=== PATIENT | female | born 1930 | race Caucasian/White ===

== ENCOUNTER 2017-11-02 11:06 | Observation (INO) | payer OTHER ==
[~2017-11-02] VITALS: Ht 170.2 cm; Wt 87.5 kg
[~2017-11-02 11:06] MED LIST: DALIRESP500 MCG PO; LEVOFLOXACIN250 MG PO; LIPITOR40 MG PO; LO-DOSE ASPIRIN81 M1 PO; LOSARTAN POTAS100 MG PO; LOSARTAN-HCTZ1 EAC1 PO; MECLIZINE HCL25 MG PO; PANTOPRAZOLE SO40 MG PO; SYMBICORT60 INHALAT IH; TYLENOL ARTHRI650 MG PO; ULTRAM50 MG PO; VITAMIN D31000 UNIT PO
[2017-11-02 12:34] LABS: HEMATOCRIT 39.3 % (36.0-46.0); HEMOGLOBIN 12.9 G/DL (11.9-15.5); MCH 28.5 PG (29.0-34.0); MCHC 32.8 G/DL (30.0-36.0); MCV 86.8 FL (83-99); PLATELET COUNT 213 K/uL (156-360); RBC DIS.WIDTH-CV 13.9 % (11.8-14.6); RBC DIS.WIDTH-SD 44.2 % (39-53); RED BLOOD COUNT 4.53 M/uL (3.80-5.20); WHITE BLOOD COUNT 6.1 K/uL (4.1-10.2)
[2017-11-02 12:45] LABS: CHLORIDE 102 mEq/L (99-109); POTASSIUM 3.5 mEq/L (3.7-5.4); SODIUM 137 mEq/L (136-147)
[2017-11-02 12:47] LABS: GLUCOSE 151 mg/dL (70-99); TOTAL PROTEIN 6.8 g/dL (6.4-8.3)
[2017-11-02 12:49] LABS: TOTAL BILIRUBIN 0.6 mg/dL (0.0-1.0)
[2017-11-02 12:50] LABS: ALKALINE PHOSPHATASE 96 IU/L (3-129)
[2017-11-02 12:51] LABS: CREATININE 1.1 mg/dL (0.6-1.3); GFR ESTIMATE (CALCULATED) 50 mL/min/
[2017-11-02 12:52] LABS: AST (GOT) 17 IU/L (2-34); UREA NITROGEN (BUN) 21 mg/dL (9-23)
[2017-11-02 12:53] LABS: ALT (GPT) 14 IU/L (3-49)
[2017-11-02 18:11] LABS: ERTH.SED.RATE 35 MM/HR (0-30)
[2017-11-02 18:13] LABS: APPEARANCE CLEAR ((CLEAR)); BILIRUBIN NEGATIVE; BLOOD NEGATIVE; COLOR YELLOW ((YELLOW)); GLUCOSE (STRIP) NEGATIVE; KETONES NEGATIVE; LEUKOCYTES TRACE; NITRITE NEGATIVE; PROTEIN (STRIP) NEGATIVE; SPECIFIC GRAVITY 1.013 (1.000-1.030); UROBILINOGEN 0.2 MG/DL (0.2-1.0)
[2017-11-02 18:16] LABS: BACTERIA NONE SEEN /HPF; EPITHELIAL CELLS 1+ /HPF; MUCUS NONE SEEN /LPF; RED BLOOD CELLS 0-5 /HPF (0-5); UCUL ADDED? NO; WHITE BLOOD CELLS 0-5 /HPF (0-5)
[2017-11-02] MEDS ORDERED: TRAMADOL HCL50 MG PO (20:36)
[2017-11-02] MEDS ORDERED: AMLODIPINE BESYL5 MG PO (20:39)
[2017-11-02] MEDS ORDERED: BREO ELLIPTA I1 EACH IH (20:39)
[2017-11-02] MEDS ORDERED: DYAZIDE, MA1 CAPSULE PO (20:39)
[2017-11-02] MEDS ORDERED: CYANOCOBALAM1000 MCG PO (20:40)
[2017-11-02 22:07] VITALS: BP 170/85
[2017-11-03 04:01] VITALS: BP 153/74
[2017-11-03 06:41] LABS: HEMATOCRIT 33.8 % (36.0-46.0); MCH 28.2 PG (29.0-34.0); MCHC 32.2 G/DL (30.0-36.0); MCV 87.3 FL (83-99); PLATELET COUNT 197 K/uL (156-360); RBC DIS.WIDTH-CV 14.1 % (11.8-14.6); RBC DIS.WIDTH-SD 44.8 % (39-53); RED BLOOD COUNT 3.87 M/uL (3.80-5.20); WHITE BLOOD COUNT 5.6 K/uL (4.1-10.2)
[2017-11-03 06:46] LABS: HEMOGLOBIN 10.9 G/DL (11.9-15.5)
[2017-11-03 07:00] LABS: CHLORIDE 102 MEQ/L (99-109); GFR ESTIMATE (CALCULATED) 56 mL/min/; GLUCOSE 120 mg/dL (70-99); POTASSIUM 3.7 MEQ/L (3.7-5.4); SODIUM 139 MEQ/L (136-147); UREA NITROGEN (BUN) 22 mg/dL (9-23)
[2017-11-03 11:56] VITALS: BP 144/89
[2017-11-03 15:22] VITALS: BP 150/71
== END 2017-11-03 18:21 | disposition home or self-care (01) ==
LOC: EME 11:06 → EDOF 20:30 → 5WEST 20:30 → EDOF 20:30 → ENRESERV 20:51 → 5WEST 21:49
PROVIDERS: Hospitalist
DX: R53.1 Weakness (principal); M48.061 Spinal stenosis, lumbar region without neurogenic claudication; M47.816 Spondylosis without myelopathy or radiculopathy, lumbar region; R29.6 Repeated falls; I10 Essential (primary) hypertension; E11.9 Type 2 diabetes mellitus without complications; J44.9 Chronic obstructive pulmonary disease, unspecified; E66.01 Morbid (severe) obesity due to excess calories; Z68.30 Body mass index [BMI] 30.0-30.9, adult; E78.5 Hyperlipidemia, unspecified; K21.9 Gastro-esophageal reflux disease without esophagitis; G89.29 Other chronic pain; M19.90 Unspecified osteoarthritis, unspecified site; E53.8 Deficiency of other specified B group vitamins; E55.9 Vitamin D deficiency, unspecified; Z88.0 Allergy status to penicillin; Z82.49 Family history of ischemic heart disease and other diseases of the circulatory system; M79.605 Pain in left leg; M79.672 Pain in left foot; Z79.82 Long term (current) use of aspirin; Z66 Do not resuscitate; Z83.3 Family history of diabetes mellitus; Z80.9 Family history of malignant neoplasm, unspecified
CPT/HCPCS: 70450; 73590; 73630; 80048; 80053; 81003; 82948; 85027; 85652; 93971; 94640; 99281; 99285; G0378; G8978 GP CJ; G8979 GP CI; G8980 CJ; G8987 GO CJ; G8988 CI; G8989 CJ; J1650

== ENCOUNTER 2017-11-23 09:32 | Observation (INO) | payer OTHER ==
[~2017-11-23] VITALS: Ht 170.2 cm; Wt 86.4 kg
[~2017-11-23 09:32] MED LIST changes: +AMLODIPINE BESYL5 MG PO; +BREO ELLIPTA I1 EACH IH; +CYANOCOBALAM1000 MCG PO; +DYAZIDE, MA1 CAPSULE PO
[2017-11-23 10:03] LABS: BASOPHIL (%) 0.8 % (0-1); BASOPHIL COUNT 0.1 K/uL (0-0.1); EOSINOPHIL (%) 2.6 % (0-5); EOSINOPHIL COUNT 0.2 K/uL (0-0.3); HEMATOCRIT 34.7 % (36.0-46.0); HEMOGLOBIN 11.2 G/DL (11.9-15.5); LYMPHOCYTE (%) 19.5 % (15-42); LYMPHOCYTE COUNT 1.2 K/uL (1.0-2.8); MCH 28.6 PG (29.0-34.0); MCHC 32.3 G/DL (30.0-36.0); MCV 88.7 FL (83-99); MONOCYTE (%) 9.3 % (3-12); MONOCYTE COUNT 0.6 K/uL (0-0.8); NEUTROPHIL (%) 66.8 % (45-76); NEUTROPHIL COUNT 4.2 K/uL (1.8-6.4); PLATELET COUNT 202 K/uL (156-360); RBC DIS.WIDTH-CV 14.5 % (11.8-14.6); RBC DIS.WIDTH-SD 46.4 % (39-53); RED BLOOD COUNT 3.91 M/uL (3.80-5.20); WHITE BLOOD COUNT 6.3 K/uL (4.1-10.2)
[2017-11-23 10:12] LABS: CHLORIDE 108 mEq/L (99-109); SODIUM 139 mEq/L (136-147)
[2017-11-23 10:13] LABS: GLUCOSE 144 mg/dL (70-99)
[2017-11-23 10:17] LABS: CREATININE 1.3 mg/dL (0.6-1.3); GFR ESTIMATE (CALCULATED) 41 mL/min/
[2017-11-23 10:18] LABS: UREA NITROGEN (BUN) 35 mg/dL (9-23)
[2017-11-23 10:23] LABS: TROP-I INTERPRETATION NEGATIVE; TROPONIN-I < 0.01 ng/mL (0.0-0.30)
[2017-11-23] MEDS ORDERED: TOPROL XL50 MG PO (11:07)
[2017-11-23] MEDS ORDERED: MOBIC15 MG PO (11:07)
[2017-11-23 13:03] VITALS: BP 162/77
[2017-11-23 15:44] VITALS: BP 185/75
[2017-11-23 16:34] LABS: TROP-I INTERPRETATION NEGATIVE; TROPONIN-I < 0.01 ng/mL (0.0-0.30)
[2017-11-23 19:11] VITALS: BP 150/66
[2017-11-23 22:40] LABS: TROP-I INTERPRETATION NEGATIVE; TROPONIN-I < 0.01 ng/mL (0.0-0.30)
[2017-11-23 23:30] VITALS: BP 159/76
[2017-11-24 03:42] VITALS: BP 152/60
[2017-11-24 07:00] VITALS: BP 149/65
[2017-11-24] MEDS ORDERED: AMLODIPINE BESYL5 MG PO (15:16)
[2017-11-24] MEDS ORDERED: PROAIR RESPICL90 MCG IH (15:16)
[2017-11-24] MEDS ORDERED: TOPROL XL50 MG PO (15:16)
[2017-11-24 15:55] VITALS: BP 138/63
== END 2017-11-24 17:39 | disposition home or self-care (01) ==
LOC: EME 09:32 → 5WEST 10:43 → EDOF 10:43 → ENRESERV 10:49 → 5WEST 12:43
PROVIDERS: Emergency Medicine; Internal Medicine
DX: I95.1 Orthostatic hypotension (principal); E86.0 Dehydration; E55.9 Vitamin D deficiency, unspecified; E53.8 Deficiency of other specified B group vitamins; D64.9 Anemia, unspecified; K21.9 Gastro-esophageal reflux disease without esophagitis; J44.9 Chronic obstructive pulmonary disease, unspecified; I10 Essential (primary) hypertension; E11.9 Type 2 diabetes mellitus without complications; E78.5 Hyperlipidemia, unspecified; G89.29 Other chronic pain; M19.90 Unspecified osteoarthritis, unspecified site; I27.20 Pulmonary hypertension, unspecified; I35.0 Nonrheumatic aortic (valve) stenosis; Z95.2 Presence of prosthetic heart valve; Z87.891 Personal history of nicotine dependence; Z88.0 Allergy status to penicillin; Z82.49 Family history of ischemic heart disease and other diseases of the circulatory system; Z83.3 Family history of diabetes mellitus
CPT/HCPCS: 70450; 71045; 80048; 82948; 84484; 85025; 93005; 93306; 93880; 94640; 94640 76; 99202; 99281; 99285; G0378; G8978 GP CJ; G8979 GP CH; G8987 GO CI; G8988 GO CH; J1650; J7030

== ENCOUNTER 2018-04-03 08:56 | Emergency (ER) | payer OTHER ==
[~2018-04-03] VITALS: Ht 170.2 cm; Wt 903.0 kg
[~2018-04-03 08:56] MED LIST changes: +MOBIC15 MG PO; +PROAIR RESPICL90 MCG IH; +TOPROL XL50 MG PO
[2018-04-03 10:17] VITALS: BP 152/97
== END 2018-04-03 10:20 | disposition home or self-care (01) ==
LOC: EME 08:56
DX: M25.561 Pain in right knee (principal); M79.604 Pain in right leg; M54.5 Low back pain; G89.29 Other chronic pain; W19.XXXA Unspecified fall, initial encounter; M79.89 Other specified soft tissue disorders; I10 Essential (primary) hypertension; E78.5 Hyperlipidemia, unspecified; J44.9 Chronic obstructive pulmonary disease, unspecified; Z79.82 Long term (current) use of aspirin; Z88.0 Allergy status to penicillin
CPT/HCPCS: 73564; 73590; 99281; 99284